=== PATIENT | male | born 1960 | race Caucasian/White ===

== ENCOUNTER 2017-06-15 13:02 | Emergency (ER) | payer SELFPAY ==
[~2017-06-15] VITALS: Ht 167.6 cm; Wt 80.0 kg
[2017-06-15 13:03] VITALS: BP 167/88; PULSE 94; RESP 20; TEMP 99.1; O2SAT 97
[2017-06-15] MEDS ORDERED: SILVER SULFADIAZINE 1% CR 50 GM JAR TOPICAL ONE (17:15)
[2017-06-15] MEDS ORDERED: CEPH-460 PO (17:20)
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
== END 2017-06-15 18:16 | disposition home or self-care (01) ==
LOC: NEPD 13:02
DX: T23.261A Burn of second degree of back of right hand, initial encounter (principal); Z72.0 Tobacco use; X03.8XXA Other exposure to controlled fire, not in building or structure, initial encounter
CPT/HCPCS: 16020